=== PATIENT | male | born 1965 | race Caucasian/White ===

== ENCOUNTER 2017-01-03 20:03 | Inpatient (IN) | payer OTHER ==
--- NOTE | ~2017-01-03 | PN ---
Unit #: [id number] #: [id number] Patient: CHANTE FERRARO [id number] [facility] [address] [place] [address] [id number] I MR#: [id number] NAME: CHANTE FERRARO ROOM: P182 Age: 51 Sex: M Admission Date: 01/03/2017 : 1965 Attending Physician: Russell Barone M.D. Admitting Physician: Russell Barone M.D. Primary Care Physician: Primary Care Physician No ANASTACIACE PROGRESS NOTES DATE 01/05/2017 DISCUSSION The patient is resting comfortably today. His detox continues uneventfully. Dictated by... Russell Barone M.D. CB/claire TD: 01/05/2017 15:19 JOB #: [id number] [facility] PROGRESS NOTES X Russell Barone MD PROGRESS NOTE
--- NOTE | ~2017-01-03 | CO ---
Unit #: [id number] #: [id number] Patient: CHANTE FERRARO [id number] [place] [address] [id number] MR#: [id number] NAME: CHANTE FERRARO ROOM: [facility] Age: 51 Sex: M Admission Date: 01/03/2017 : 1965 Attending Physician: Russell Barone M.D. Consultation Date: 01/04/2017 CONSULTATION REPORT SUBJECTIVE Chante is a 51-year-old, admitted because of his abuse of alcohol. He gave no history of high blood pressure at time of admission. We have been asked to see him for "high blood pressure." Since admission, his blood pressures have been running 140/78, 117/60, 155/59 with heart rate ranging from a maximum of 114 to 78 three days into his detox. ASSESSMENT Elevated blood pressures during alcohol detox. The patient gives no prior history of high blood pressure. PLAN Continue to monitor blood pressures during detox. They have continued to return to normal limits as he progresses with his detox. Dictated by... Maggie Hamilton P.A.-C. for Cornelia Calderon/avi TD: 01/06/2017 13:46 JOB #: [id number] CONSULTATION REPORT X Maggie Hamilton CONSULTATION REPORT
--- NOTE | ~2017-01-03 | PA ---
Unit #: [id number] #: [id number] Patient: CHANTE FERRARO [id number] [facility] [address] [place] [address] [id number] I MR#: [id number] NAME: CHANTE FERRARO ROOM: [facility] Age: 51 Sex: M Admission Date: 01/03/2017 : 1965 Date of Assessment: 01/04/2017 Attending Physician: Russell Barone M.D. Admitting Physician: Russell Barone M.D. Primary Care Physician: Primary Care Physician No PSYCHIATRIC ASSESSMENT IDENTIFYING INFORMATION The patient is a 51-year-old white male admitted in transfer from [facility] emergency room where he had presented intoxicated and reporting hopelessness related to his ongoing alcohol use. INFORMANT(S) Patient. RELIABILITY Good. CHIEF COMPLAINT None given. HISTORY OF PRESENT ILLNESS The patient is a 51-year-old white male with a long history of alcohol dependence. He reports that he drinks about a fifth of hard liquor on a daily basis and has done so "as long as I can remember." He reports that he has attempted to get into chemical dependence treatment in the past but has not followed through. The patient currently reports no suicidal or homicidal ideation but does report hopelessness related to his increasing use of alcohol. He is presently unemployed and homeless. He has been staying with a friend. He denies recent changes in sleep or appetite. He denies any history of complicated substance withdrawal, seizures, DT's, etc. He does complain of occasional poor sleep. He denies any loss of appetite. PAST PSYCHIATRIC HISTORY As above. FAMILY HISTORY The patient reports no family history of psychiatric illness or substance use. 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 He reports substance use as noted previously and is a smoker. MEDICAL HISTORY Noncontributory. MEDICATION HISTORY Unit #: [id number] #: [id number] Patient: CHANTE FERRARO None. ALLERGIES None. MENTAL STATUS EXAM At this time, reveals the patient to be a somewhat disheveled white male appearing older than his stated age of 51 years. He is in significant physical distress related to alcohol withdrawal. During interview, he is awake, alert, oriented in all spheres. His mood is dysphoric. His affect constricted. Speech is generally relevant and coherent. There are no gross deficits in memory or cognition noted. Intelligence is judged to be in the average range based on fund of knowledge. The patient is cooperative throughout the interview. He is currently denying suicidal/homicidal ideation or psychotic features. Judgement and insight appear to be intact. ASSETS AND LIABILITIES Patient's assets, motivation for change. Liabilities, lack of resources. ADMITTING DIAGNOSIS Alcohol use disorder. PSYCHIATRIC PLAN/TREATMENT GOALS The patient remains hospitalized for safety and stabilization. Routine detoxification protocol for alcohol has been initiated. The patient will participate in appropriate [place] and milieu activities and we will explore post discharge treatment options including residential and/or intensive outpatient treatment in the patient's hometown of [place], [place]. ESTIMATED LENGTH OF STAY Three to five days. Dictated by... Russell Barone M.D. VIJAY/claire TD: 01/04/2017 16:49 JOB #: [id number] PSYCHIATRIC ASSESSMENT X Russell Barone MD X PSYCHIATRIC ASSESSMENT
--- NOTE | ~2017-01-03 | HP ---
Unit #: [id number] #: [id number] Patient: CHANTE FERRARO [id number] [place] [address] [id number] I MR#: [id number] NAME: CHANTE FERRARO ROOM: P182 Age: 51 Sex: M Admission Date: 01/03/2017 : 1965 Attending Physician: Russell Barone M.D. Admitting Physician: Russell Barone M.D. Primary Care Physician: Primary Care Physician No HISTORY AND PHYSICAL HISTORY OF PRESENT ILLNESS Chante is a 51 year old admitted to [facility] because of his abuse of alcohol. He is detoxing. PAST MEDICAL HISTORY Long history of alcohol abuse. PAST SURGICAL HISTORY Nothing reported. ALLERGIES No known drug allergies. SOCIAL HISTORY He does not smoke. Drinks a fifth and half of vodka on a daily basis. Denies illicit drug use. FAMILY HISTORY Medically noncontributory. REVIEW OF SYSTEMS CONSTITUTIONAL: No fever or chills. HEENT: Denies any sore throat, ear pain or runny nose. CARDIOVASCULAR: Denies chest pain, irregular heart rhythm or palpitations. CHEST: Denies shortness of breath or cough. No hemoptysis. GASTROINTESTINAL: Denies nausea, vomiting, diarrhea or chronic constipation. ENDOCRINE: Denies history of increased thirst or urination. No recent significant weight loss or gain. GENITOURINARY: Denies dysuria, frequency, or hematuria. SKIN: Denies any rashes. HEMATOLOGIC: Denies history of increased bleeding or bruising. MUSCULOSKELETAL: Denies any hot, swollen joints. No generalized muscle pain. NEUROLOGIC: Denies problems with vision or speech. No frequent, severe headaches. No numbness, tingling or weakness in any extremities. Denies loss of bladder or bowel control. CURRENT MEDICATIONS Detox protocol. PHYSICAL EXAMINATION GENERAL: Alert, well-nourished, in no apparent distress. Unit #: [id number] #: [id number] Patient: CHANTE FERRARO VITAL SIGNS: Blood pressure 132/82, heart rate 80, respirations 16, temperature 98.6. WEIGHT: 212. HEIGHT: 5 feet 5 inches. SKIN: Warm and dry without rash or lesion. HEENT: Normocephalic. TMs not viewed. Oral and nasal passages clear. Conjunctivae clear. PERRLA. EOMs intact. NECK: Supple without lymphadenopathy or thyromegaly. HEART: Regular rate and rhythm without murmur. LUNGS: Clear. ABDOMEN: Soft, nontender. : Not done. EXTREMITIES: No evidence of cyanosis, clubbing or edema. Moves all without focal deficit. NEUROLOGICAL: Grossly within normal limits. Cranial Nerves: II: Visual andrade are intact. III, IV AND : Extraocular movements are intact. Pupils are equal, round and reactive to light. V: Facial sensation is grossly normal. VII: Facial movements and expression are normal. VIII: Auditory acuity grossly intact. IX, X: Uvula is midline. Phonation is normal. XI: Patient shrugs shoulders and turns head normally. XII: Tongue protrudes in the midline. Sensory and Motor Function: Sensory and motor sensation is grossly normal. Motor: moves all extremities well. Coordination: Gait is normal. Deep Tendon Reflexes: Intact. IMPRESSION Psychiatric admission. RECOMMENDATIONS PSYCHIATRIC: Per psychiatrist. MEDICAL: See no contraindications to participate in facility's activities. MEDICAL PROGNOSIS Good. MEDICAL CONDITION Stable. Dictated by... Maggie Hamilton P.A.-C. for Cornelia Calderon/claire TD: 01/04/2017 20:05 JOB #: [id number] Unit #: [id number] #: [id number] Patient: CHANTE FERRARO HISTORY AND PHYSICAL X Maggie Hamilton HISTORY AND PHYSICAL
--- NOTE | ~2017-01-03 | PN ---
Unit #: [id number] #: [id number] Patient: CHANTE FERRARO [id number] [facility] [address] [place] [address] [id number] I MR#: [id number] NAME: CHANTE FERRARO ROOM: P182 Age: 51 Sex: M Admission Date: 01/03/2017 : 1965 Attending Physician: Russell Barone M.D. Admitting Physician: Russell Barone M.D. Primary Care Physician: Primary Care Physician Dyan VELASQUEZ NOTES DATE 01/07/2017 DISCUSSION The patient is resting comfortably today and offers no new complaints. Staff reports no management issues. Dictated by... Russell Barone M.D. CB/laura TD: 01/08/2017 00:31 JOB #: [id number] [facility] PROGRESS NOTES X Russell Barone MD PROGRESS NOTE
--- NOTE | ~2017-01-03 | DS ---
Unit #: [id number] #: [id number] Patient: CHANTE FERRARO [id number] [facility] [address] [place] [address] [id number] I MR#: [id number] NAME: CHANTE FERRARO ROOM: [facility] Age: 51 Sex: M Admission Date: 01/03/2017 : 1965 Discharge Date: 01/08/2017 Attending Physician: Russell Barone M.D. Primary Care Physician: Primary Care Physician No DISCHARGE SUMMARY REASON FOR ADMISSION The patient is a 51-year-old, single, white male, admitted to the [facility] unit for alcohol detox. HOSPITAL COURSE The patient was admitted to the [facility] unit and placed on routine detoxification protocol for alcohol. Seroquel was ordered on p.r.n. basis for anxiety. By 01/08/2017, the patient was in bright spirits and exhibited no signs or symptoms of withdrawal. As per his request, discharge was ordered. FINAL DIAGNOSES Alcohol use disorder. DISPOSITION ON DISCHARGE No psychotropic or other medications were ordered at the time of discharge. FOLLOWUP Followup will take place through the auspices of community mental health and chemical dependency treatment resources in the [place], [place] area. PROGNOSIS The patient's prognosis is considered fair. Dictated by... Russell Barone M.D. CB/avi TD: 01/08/2017 21:53 JOB #: [id number] DISCHARGE SUMMARY X Russell Barone MD X DISCHARGE SUMMARY
[2017-01-04 12:37] LABS: BASOPHIL% 0.7 % (0-2.5); EOSINOPHIL# 0.2 X10e3 (0-0.7); EOSINOPHIL% 2.7 % (0.0-7.0); HEMATOCRIT 43.5 % (38.0-50.0); HEMOGLOBIN 14.6 gm/dL (13.0-16.0); LYMPHOCYTE# 1.9 X10e3 (1.0-3.5); LYMPHOCYTE% 34.2 % (17.0-45.0); MEAN CELL VOLUME 105.3 FL (83-96); MEAN CORPUSCULAR HEMOGLOBIN 35.4 PG (28-34); MEAN CORPUSCULAR HGB CONC 33.6 g/dL (30-36); MEAN PLATELET VOLUME 7.5 FL (6.5-11.5); MONOCYTE# 0.7 X10e3 (0-1.0); MONOCYTE% 12.1 % (3.0-12.0); NEUTROPHIL# 2.8 X10e3 (1.5-7.1); NEUTROPHIL% 50.3 % (40-75); PLATELET COUNT 293 X10e3 (140-420); RED BLOOD COUNT 4.13 X10e (3.90-5.60); RED CELL DISTRIBUTION WIDTH 15.3 % (11.0-15.5); WHITE BLOOD COUNT 5.7 X10e3 (4.0-10.5)
[2017-01-04 12:41] LABS: DIFF IND YES
[2017-01-04 12:42] LABS: ALBUMIN SERUM 3.2 g/dL (3.5-5.0); ALKALINE PHOSPHATASE 94 U/L (32-92); ALT (SGPT) 11 U/L (10-40); AST (SGOT) 19 U/L (10-42); BILIRUBIN,TOTAL 0.9 mg/dL (0.2-2.0); BLOOD UREA NITROGEN 16 mg/dL (9-23); BUN/CREATININE RATIO 17.77; CALCIUM SERUM 8.8 mg/dL (8.4-10.2); CARBON DIOXIDE 25 mmol/L (22-31); CHLORIDE 108 mmol/L (100-111); CREATININE SERUM 0.9 mg/dL (0.6-1.4); GLOM FILT RATE Estimated ABOVE60 mL/min (>60); GLUCOSE FASTING 117 mg/dL (70-110); POTASSIUM 3.8 mmol/L (3.5-5.1); PROTEIN TOTAL SERUM 6.3 g/dL (6.0-8.3); SODIUM 140 mmol/L (135-145)
[2017-01-04 13:11] LABS: PLATELET ESTIMATE NORMAL (NORMAL)
[2017-01-04 13:13] LABS: ANISOCYTOSIS SL
[2017-01-04 13:31] LABS: THYROID STIMULATING HORMONE 2.13 uIU/ml (0.34-5.60)
[2017-01-04 13:38] LABS: FREE THYROXIN (T4) 0.94 ng/dL (0.58-1.64)
[2017-01-05 10:11] LABS: URINE APPEARANCE CLOUDY; URINE BILIRUBIN NEG (NEG); URINE BLOOD NEG (NEG); URINE COLOR YELLOW; URINE GLUCOSE NORM (NORM); URINE KETONE NEG (NEG); URINE LEUKOCYTE ESTERASE NEG (NEG); URINE NITRATE NEG (NEG); URINE PROTEIN NEG (NEG); URINE UROBILINOGEN 8 MG/DL (NORM)
[2017-01-05 10:59] LABS: AMPHETAMINE NEG (NEG); BARBITURATES NEG (NEG); BENZODIAZEPINES POS (NEG); COCAINE NEG (NEG); MARIJUANA NEG (NEG); OPIATES NEG (NEG); TRICYCLIC ANTIDEPRESSANTS NEG (NEG); U METHADONE NEG (NEG)
== END 2017-01-08 15:25 | disposition home or self-care (01) | DRG 897 ==
LOC: P1E 20:03
PROVIDERS: Specialist
PROC: HZ2ZZZZ Detoxification Services for Substance Abuse Treatment (ICD-10-PCS; principal; 2017-01-03)
DX: F10.239 Alcohol dependence with withdrawal, unspecified (principal); Z59.0 Homelessness; Z56.0 Unemployment, unspecified
CPT/HCPCS: 80053; 80307; 81003; 84439; 84443; 85025; 86592

== ENCOUNTER 2017-02-09 16:27 | Inpatient (IN) | payer OTHER ==
--- NOTE | ~2017-02-09 | CO ---
Unit #: [id number] #: [id number] Patient: CHANTE FERRARO [id number] [facility] [address] [place] [address] [id number] I MR#: [id number] NAME: CHANTE FERRARO ROOM: 71 Age: 51 Sex: M Admission Date: 02/09/2017 : 1965 Attending Physician: Russell Barone M.D. Primary Care Physician: Primary Care Physician No CONSULTATION REPORT REASON FOR CONSULT Patient complaint of wheezing and bilateral ankle and foot edema. SUBJECTIVE "I'm not wheezing. I don't know what they are talking about and I have never noticed any swelling in my feet." OBJECTIVE Vital signs within normal limits. Lungs clear to auscultation bilaterally. No wheezing present. Noted trace edema to bilateral feet and ankles, nonpitting. ASSESSMENT Trace edema to bilateral feet and ankles. PLAN Observation only. Dictated by... Sandy Singh/claire TD: 02/10/2017 20:39 JOB #: [id number] CONSULTATION REPORT Page 1 of 1 X Cheryl Elliott APR X CONSULTATION REPORT
--- NOTE | ~2017-02-09 | DS ---
Unit #: [id number] #: [id number] Patient: CHANTE FERRARO [id number] [facility] [address] [place] [address] [id number] I MR#: [id number] NAME: CHANTE FERRARO ROOM: [facility] Age: 51 Sex: M Admission Date: 02/09/2017 : 1965 Discharge Date: 02/11/2017 Attending Physician: Russell Barone M.D. DISCHARGE SUMMARY REASON FOR ADMISSION The patient is a 51-year-old, single white male, admitted to the [facility] unit for alcohol detox. HOSPITAL COURSE The patient was admitted to the [facility] unit and placed on a routine detoxification protocol. His stay in the hospital was uneventful. He requested discharge on 02/11/2017 stating that he had made arrangements to stay at "[facility]" in [place] upon discharge. It was so ordered. FINAL DIAGNOSES Alcohol use disorder. DISPOSITION ON DISCHARGE The patient is discharged on no psychotropic or other medications. FOLLOWUP Followup will take place through the auspices of community mental health resources in the [place], [place] area. PROGNOSIS The patient's prognosis is considered fair. Dictated by... Russell Barone M.D. CB/avi TD: 02/11/2017 17:48 JOB #: [id number] DISCHARGE SUMMARY Page 1 of 1 X Russell Barone MD X DISCHARGE SUMMARY
--- NOTE | ~2017-02-09 | PA ---
Unit #: [id number] #: [id number] Patient: CHANTE FERRARO [id number] [facility] [address] [place] [address] [id number] I MR#: [id number] NAME: CHANTE FERRARO ROOM: [facility] Age: 51 Sex: M Admission Date: 02/09/2017 : 1965 Date of Assessment: 02/10/2017 Attending Physician: Russell Barone M.D. Admitting Physician: Russell Barone M.D. Primary Care Physician: Primary Care Physician No PSYCHIATRIC ASSESSMENT IDENTIFYING INFORMATION The patient is a 51-year-old white male admitted to the [facility] unit with increasing alcohol use. INFORMANT(S) Patient. RELIABILITY Fair. CHIEF COMPLAINT None given. HISTORY OF PRESENT ILLNESS The patient is a 51-year-old white male admitted in transfer from [facility] in [place] where he had presented reporting use of 1-1/2 fifths of hard liquor on a daily basis. Patient was last discharged from this facility on 01/08. He maintained sobriety for no significant period of time. The patient appears physically quite debilitated today and in fact was sent out for medical clearance earlier this morning. He is currently denying suicidal or homicidal ideation and denies any psychotic symptoms. He is hoping to go to the [facility] in [place] upon his discharge from this facility. For a more complete history of present illness, please refer to previous dictated notes. PAST PSYCHIATRIC HISTORY Reviewed, no changes. FAMILY HISTORY/SOCIAL HISTORY Reviewed, no changes. MEDICAL HISTORY Reviewed, no changes. MEDICATION HISTORY None. ALLERGIES None. MENTAL STATUS EXAM At this time, reveals the patient to be an obese, disheveled white male appearing his stated age. He is in no apparent physical distress at the Unit #: [id number] #: [id number] Patient: CHANTE FERRARO time of the examination. He is awake, alert, oriented in all spheres. His mood is mildly dysphoric. His affect is constricted. Speech is generally relevant and coherent. There are no gross deficits in memory or cognition noted. Intelligence is judged to be in the average range based on fund of knowledge. The patient is cooperative throughout the interview. The patient denies suicidal or homicidal ideation and denies any psychotic symptoms. His judgement and insight appear to be reasonably intact. ASSETS AND LIABILITIES Patient's assets, motivation for change. Liabilities, lack of resources. ADMITTING DIAGNOSES Alcohol use disorder. PSYCHIATRIC PLAN/TREATMENT GOALS The patient remains hospitalized for safety and stabilization. Routine detoxification protocol for alcohol has been initiated. We will look to transport the patient back to [place] to the [facility] with completion of detox which should be in 3 to 4 days. Dictated by... Russell Barone M.D. VIJAY/claire TD: 02/10/2017 16:54 JOB #: [id number] PSYCHIATRIC ASSESSMENT Page 1 of 1 X Russell Barone MD X PSYCHIATRIC ASSESSMENT
--- NOTE | ~2017-02-09 | HP ---
Unit #: [id number] #: [id number] Patient: CHANTE FERRARO [id number] [place] [address] [id number] MR#: [id number] NAME: CHANTE FERRARO ROOM: P171 Age: 51 Sex: M Admission Date: 02/09/2017 : 1965 Attending Physician: Russell Barone M.D. Admitting Physician: Russell Barone M.D. Primary Care Physician: Primary Care Physician No HISTORY AND PHYSICAL HISTORY OF PRESENT ILLNESS The patient is a 51-year-old male who states he is here for alcohol, drinks "a lot." PAST MEDICAL HISTORY None. PAST SURGICAL HISTORY None. ALLERGIES None. SOCIAL HISTORY Positive for alcohol only. FAMILY HISTORY Noncontributory. REVIEW OF SYSTEMS CONSTITUTIONAL: No fever or chills. HEENT: Denies any sore throat, ear pain or runny nose. CARDIOVASCULAR: Denies chest pain, irregular heart rhythm or palpitations. CHEST: Denies shortness of breath or cough. No hemoptysis. GASTROINTESTINAL: Denies nausea, vomiting, diarrhea or chronic constipation. ENDOCRINE: Denies history of increased thirst or urination. No recent significant weight loss or gain. GENITOURINARY: Denies dysuria, frequency, or hematuria. SKIN: Denies any rashes. HEMATOLOGIC: Denies history of increased bleeding or bruising. MUSCULOSKELETAL: Denies any hot, swollen joints. No generalized muscle pain. NEUROLOGIC: Denies problems with vision or speech. No frequent, severe headaches. No numbness, tingling or weakness in any extremities. Denies loss of bladder or bowel control. CURRENT MEDICATIONS None. PHYSICAL EXAMINATION GENERAL: Alert, oriented, in no acute distress. VITAL SIGNS: Temperature 98, heart rate not available, respirations 16, Unit #: [id number] #: [id number] Patient: CHANTE FERRARO blood pressure 123/76. HEIGHT: 5 feet 5 inches. WEIGHT: 220 pounds. SKIN: Slightly reddened area to the right upper arm. A scar to the right hip. Trace edema bilateral ankles. HEENT: Normocephalic. TMs not viewed. Oral and nasal passages clear. Conjunctivae clear. PERRLA. EOMs intact. NECK: Supple without lymphadenopathy or thyromegaly. HEART: Regular rate and rhythm without murmur. LUNGS: Clear. ABDOMEN: Soft, nontender, without masses or hepatosplenomegaly. : Not done. EXTREMITIES: No evidence of cyanosis, clubbing or edema. Moves all without focal deficit. NEUROLOGICAL: Grossly within normal limits. Cranial Nerves: II: Visual andrade are intact. III, IV AND : Extraocular movements are intact. Pupils are equal, round and reactive to light. V: Facial sensation is grossly normal. VII: Facial movements and expression are normal. VIII: Auditory acuity grossly intact. IX, X: Uvula is midline. Phonation is normal. XI: Patient shrugs shoulders and turns head normally. XII: Tongue protrudes in the midline. Sensory and Motor Function: Sensory and motor sensation is grossly normal. Motor: moves all extremities well. Coordination: Gait is normal. Deep Tendon Reflexes: Intact. IMPRESSION Psychiatric admission. RECOMMENDATIONS PSYCHIATRIC: Per psychiatrist. MEDICAL: No contraindications to participate in facility's activities. MEDICAL PROGNOSIS Good. Dictated by... Sandy Singh/claire TD: 02/10/2017 20:25 JOB #: [id number] HISTORY AND PHYSICAL Page 1 of 1 X Cheryl Elliott APR X HISTORY AND PHYSICAL
[2017-02-10 13:15] LABS: THYROID STIMULATING HORMONE 3.43 uIU/ml (0.34-5.60)
[2017-02-10 13:26] LABS: FREE THYROXIN (T4) 0.97 ng/dL (0.58-1.64)
== END 2017-02-11 17:52 | disposition home or self-care (01) | DRG 897 ==
LOC: P1E 16:27
PROVIDERS: Specialist
PROC: HZ2ZZZZ Detoxification Services for Substance Abuse Treatment (ICD-10-PCS; principal; 2017-02-09)
DX: F10.20 Alcohol dependence, uncomplicated (principal); R60.9 Edema, unspecified
CPT/HCPCS: 84439; 84443; 86592; 93005